=== PATIENT | female | born 1980 | race Caucasian/White ===

== ENCOUNTER 2022-10-17 23:20 | Emergency (ER) | payer MEDICAID ==
[~2022-10-17] VITALS: Ht 170.2 cm; Wt 113.4 kg
[2022-10-18 00:21] VITALS: BP 140/81
--- NOTE | 2022-10-18 00:28 | NUR ---
Pt triaged and placed in WR. No acute signs of distress.
--- NOTE | 2022-10-18 00:29 | NUR ---
42 F, C/O L ANKLE PAIN ASSOCIATED WITH SWELLING, REDNESS, & WTT X2 DAYS. STATES IT'S CONSTANT PRESSURE LIKE PAIN. DENIES ANY INJURY/TRAUMA TO SITE.
--- NOTE | 2022-10-18 01:52 | NUR ---
PT TAKEN TO BED 4
--- NOTE | 2022-10-18 02:13 | NUR ---
Patient resting in bed A/Ox4, chest rise and fall symmetrical, no s/s of distress.
[2022-10-18] MEDS ORDERED: IBUPROFEN 600 MG TAB PO ONE (02:45)
[2022-10-18] MEDS ORDERED: SULF-59 PO ×2 (02:47→03:14)
[2022-10-18] MEDS ORDERED: IBUP-2213 PO ×2 (02:47→03:14)
[2022-10-18 03:15] VITALS: BP 132/74
== END 2022-10-18 03:16 | disposition home or self-care (01) ==
LOC: MED 23:20
DX: L03.116 Cellulitis of left lower limb (principal); M79.672 Pain in left foot; Z79.1 Long term (current) use of non-steroidal anti-inflammatories (NSAID); Z79.2 Long term (current) use of antibiotics
CPT/HCPCS: 73610; 99284